=== PATIENT | male | born 1970 | race Two or more races ===

== ENCOUNTER 2017-02-02 13:35 | Emergency (ER) | payer SELFPAY ==
[~2017-02-02] VITALS: Ht 172.7 cm; Wt 80.0 kg
[2017-02-02 18:56] VITALS: BP 141/91
== END 2017-02-02 18:58 | disposition home or self-care (01) ==
LOC: ER 15:43
DX: S20.212A Contusion of left front wall of thorax, initial encounter (principal); S20.211A Contusion of right front wall of thorax, initial encounter; S80.212A Abrasion, left knee, initial encounter; S80.211A Abrasion, right knee, initial encounter; S50.12XA Contusion of left forearm, initial encounter; S50.11XA Contusion of right forearm, initial encounter; I10 Essential (primary) hypertension; I51.9 Heart disease, unspecified; Z98.61 Coronary angioplasty status; Y04.0XXA Assault by unarmed brawl or fight, initial encounter; Y93.89 Activity, other specified; Y92.018 Other place in single-family (private) house as the place of occurrence of the external cause
CPT/HCPCS: 71010; 73090; 99284